=== PATIENT | female | born 1975 | race Hispanic/Latino ===

== ENCOUNTER 2016-10-24 11:26 | Emergency (ER) | payer MEDICAID ==
[2016-10-24] MEDS ORDERED: TYLENOL #3 PO ONE (15:56)
[2016-10-24] MEDS ORDERED: PROVENTIL IH ONE (15:56)
[2016-10-24] MEDS ORDERED: DUONEB 0.5 MG-3 MG/3 ML SOLN IH ONE (18:14)
[2016-10-24] MEDS ORDERED: MOTRIN PO ONE (18:14)
--- NOTE | 2016-10-24 18:52 | XRay Report ---
FINAL REPORT PROCEDURE: Chest. TECHNIQUE: PA and lateral views. HISTORY: Cough with fever. COMPARISON: No prior studies are available for comparison. FINDINGS: The heart and mediastinum appear normal. The lungs are clear and well expanded. There are no pleural effusions. The soft tissues and regional skeleton are unremarkable. IMPRESSION: Normal study.
--- NOTE | 2016-10-24 19:10 | Emergency Department Report ---
Entered by WILFREDO PAGAN, acting as scribe for NIGEL BROWN PA. - General Chief Complaint: Upper Respiratory Infection Stated Complaint: COUGH/FEVER/DIARRHEA/SORE THROAT Time Seen by Provider: 10/24/16 15:51 Source: patient Mode of arrival: Ambulatory Limitations: No Limitations - History of Present Illness Initial Comments: 41 y/o female with PMHx of bipolar disorder and childhood asthma, and PSHx of tonsillectomy, presents to the ED c/o cough beginning 1 week ago. Associated symptoms of mild wheezing, nasal congestion, fever last night (101.2 degrees), sinus area headache, ribcage pain with cough, nausea, vomiting, ear pain, and sore throat, but she denies chest pain, SOB, abdominal pain, diarrhea, numbness , and weakness. The patient took OTC cold medication and ibuprofen with no alleviation of the symptoms. Patient requests an inhaler for home. Noted Dr. Lomas is her PCP and her psychiatrist is Dr. Erickson. MD Complaint: fever, cough, sore throat, nasal congestion, other (mild wheezing , headache) -: week(s) (1 week ago) Severity: moderate Consistency: constant Improves With: nothing Worsens With: nothing Associated Symptoms: fever, headache, rhinorrhea, nasal congestion, cough, nausea, vomiting, other (rib cage pain with cough). denies: chest pain, shortness of breath, diarrhea Treatments Prior to Arrival: Ibuprofen, "cold medicine" - Related Data Previous Rx's Medication Instructions Recorded Last Taken Type ALBUTEROL Inhaler [ProAir HFA 2 puff IH QID PRN #1 inhalation 10/24/16 Unknown Rx Inhaler] Albuterol Sulfate [Albuterol 0.63% 0.63 mg IH TID PRN #1 box 10/24/16 Unknown Rx NEBS] Azithromycin [Zithromax] 250 mg PO QDAY #6 tablet 10/24/16 Unknown Rx Loratadine [Claritin] 10 mg PO DAILY #30 tablet 10/24/16 Unknown Rx Promethazine /Codeine 5 ml PO Q6H PRN #150 ml 10/24/16 Unknown Rx [Phenergan/Codeine 6.25-10 mg/5 ml] Allergies Allergy/AdvReac Type Severity Reaction Status Date / Time ciprofloxacin [From Cipro] Allergy Hives Verified 10/24/16 11:44 ciprofloxacin HCl Allergy Hives Verified 10/24/16 11:44 [From Cipro] ED Review of Systems Comment: All other systems reviewed and negative Constitutional: fever ENT: ear pain, throat pain, congestion (nasal) Respiratory: cough, wheezing. denies: shortness of breath Cardiovascular: denies: chest pain Gastrointestinal: nausea, vomiting. denies: abdominal pain, diarrhea Neurological: headache (sinus area). denies: weakness, numbness ED Past Medical Hx - Past Medical History Previous Medical History?: No - Surgical History Past Surgical History?: Yes Hx Cholecystectomy: Yes Additional Surgical History: Tonsil - Social History Smoking Status: Never Smoker Substance Use Type: None - Medications Home Medications: Home Medications Medication Instructions Recorded Confirmed Last Taken Type ALBUTEROL Inhaler [ProAir HFA 2 puff IH QID PRN #1 inhalation 10/24/16 Unknown Rx Inhaler] Albuterol Sulfate [Albuterol 0.63% 0.63 mg IH TID PRN #1 box 10/24/16 Unknown Rx NEBS] Azithromycin [Zithromax] 250 mg PO QDAY #6 tablet 10/24/16 Unknown Rx Loratadine [Claritin] 10 mg PO DAILY #30 tablet 10/24/16 Unknown Rx Promethazine /Codeine 5 ml PO Q6H PRN #150 ml 10/24/16 Unknown Rx [Phenergan/Codeine 6.25-10 mg/5 ml] ED Physical Exam - General Limitations: No Limitations - Other Other exam information: GENERAL: Patient is alert and oriented x 3. No apparent distress, normal gait, atraumatic. HEAD: Head is normocephalic and atraumatic. Bilateral maxillary sinus tenderness. EYES: Extraocular movements are intact. Pupils are equal, round, and reactive to light and accommodation. EARS: Symmetrical, atraumatic, non tender, ear canal clear with moderate cerumen , TM of the right ear is bulging, do not appreciate the bony landmarks. Left ear TM is normal. Gross auditory nml bilaterally. NOSE: Nose symmetrical, nontender. Nares appeared normal. MOUTH:Mouth is well hydrated and without lesions. Mucous membranes are moist. Uvula midline. Tongue not elevated. Posterior pharynx clear, no exudate or lesions. Noted is some post nasal drip. Tonsils are not erythematous or swollen. Patent airway. NECK: Supple. Non edematous, no carotid bruits. No lymphadenopathy or thyromegaly. LUNGS: Symmetrical with respiration. Expiratory wheezing noted, patient is not in respiratory distress. Patient actively coughing during exam. HEART: Regular rate and rhythm with normal S1/S2 present. No murmurs, rubs, or gallops. ABDOMEN: Soft, nondistended. Nontender to palpation on all quadrants. No organomegaly was noted. Positive bowel sounds. No CVA tenderness. EXTREMITIES/MUSCULOSKELETAL: No cyanosis, clubbing, rash, lesions or edema. Full ROM bilaterally. UE/LE Pulses 2+ bilaterally. LE and UE 5+ strength bilaterally SKIN: Warm and dry. No lesions, ulceration or induration present NEUROLOGIC: No focal deficit, patient behaving appropriately. ED Course Vital Signs 10/24/16 10/24/16 11:45 18:36 Temperature 98.5 F Pulse Rate 87 106 H Respiratory 22 22 Rate Blood Pressure 146/62 Blood Pressure 126/76 [Right] O2 Sat by Pulse 98 96 Oximetry ED Medical Decision Making - Radiology Data Radiology results: report reviewed, image reviewed PROCEDURE: Chest. TECHNIQUE: PA and lateral views. HISTORY: Cough with fever. COMPARISON: No prior studies are available for comparison. FINDINGS: The heart and mediastinum appear normal. The lungs are clear and well expanded. There are no pleural effusions. The soft tissues and regional skeleton are unremarkable. IMPRESSION: Normal study. Transcribed By: FORTUNATO Dictated By: CHI VALENZUELA MD Electronically Authenticated By: CHI VALENZUELA MD Signed Date/Time: 10/24/16 2641 - Medical Decision Making Patient evaluated by the provider in fast track. 41 y/o female presents complaining of cough beginning 1 week ago. The patient's X-ray is normal. Patient is sent home with Discussed with the patient to follow up with her PCP (Dr. Lomas) as referred. Told the patient to return to the ED if the symptoms return or worsen. Patient states understanding and will follow instructions. Vital signs stable. Patient is in no acute distress. ED Disposition Clinical Impression: Upper respiratory infection Qualifiers: URI type: unspecified URI Qualified Code(s): J06.9 - Acute upper respiratory infection, unspecified Disposition: DISCHARGED TO HOME OR SELFCARE Is pt being admited?: No Does the pt Need Aspirin: No Condition: Stable Instructions: Upper Respiratory Infection (ED) Additional Instructions: The take medication as prescribed. If symptoms get worse please follow up with her primary care provider or return to the emergency room. Prescriptions: ALBUTEROL Inhaler [ProAir HFA Inhaler] 2 puff IH QID PRN #1 inhalation PRN Reason: Shortness Of Breath Albuterol Sulfate [Albuterol 0.63% NEBS] 0.63 mg IH TID PRN #1 box PRN Reason: Wheezing Azithromycin [Zithromax] 250 mg PO QDAY #6 tablet Loratadine [Claritin] 10 mg PO DAILY #30 tablet Promethazine /Codeine [Phenergan/Codeine 6.25-10 mg/5 ml] 5 ml PO Q6H PRN #150 ml PRN Reason: cough Referrals: PRIMARY CARE,MD [Primary Care Provider] - 3-5 Days Forms: Work/School Release Form(ED) This documentation as recorded by the EJ hernandez GRACE,accurately reflects the service I personally performed and the decisions made by ,NIGEL BROWN PA.
[2016-10-24 19:31] VITALS: BP 116/80
== END 2016-10-24 19:32 | disposition home or self-care (01) ==
LOC: ED 11:26
DX: J06.9 Acute upper respiratory infection, unspecified (principal); Z88.1 Allergy status to other antibiotic agents; F31.9 Bipolar disorder, unspecified; J45.909 Unspecified asthma, uncomplicated
CPT/HCPCS: 71020; 81025; 94640; 96372; 99284; J2920

== ENCOUNTER 2019-11-24 12:13 | Emergency (ER) | payer SELFPAY ==
--- NOTE | 2019-11-24 12:24 | Emergency Department Report ---
- General Stated complaint: LEFT LEG INSECT BITE Time Seen by Provider: 11/24/19 12:20 - History of Present Illness Initial comments: 44 y/o female comes in for left leg pain times 5 days. Thinks that something has bitten her. Denies any fever, chills, pain worst with standing better with sitting. No PMH no meds allergies to Cipro. complaint: abscess/boil Onset/Timin -: days(s) Tetanus Up to Date: no Location: LLE Severity scale (0 -10): 9 (with standing) Quality: burning, stabbing, aching Consistency: intermittent Improves with: rest Worsens with: palpation, movement Associated symptoms: denies other symptoms Treatments Prior to Arrival: none - Related Data Previous Rx's Medication Instructions Recorded Last Taken Type Albuterol INH(or & Nicu Only) 2 puff IH QID PRN #1 inhalation 10/24/16 Unknown Rx [ProAir HFA Inhaler] Albuterol Sulfate [Albuterol 0.63% 0.63 mg IH TID PRN #1 box 10/24/16 Unknown Rx NEBS] Azithromycin [Zithromax] 250 mg PO QDAY #6 tablet 10/24/16 Unknown Rx Loratadine (Nf) [Claritin] 10 mg PO DAILY #30 tablet 10/24/16 Unknown Rx Promethazine /Codeine 5 ml PO Q6H PRN #150 ml 10/24/16 Unknown Rx [Phenergan/Codeine 6.25-10 mg/5 ml] Acetaminophen/Codeine [Tylenol 1 tab PO Q6H PRN #12 tab 04/24/19 Unknown Rx /Codeine # 3 tab] Cyclobenzaprine [Flexeril] 10 mg PO TID PRN #30 tablet 04/24/19 Unknown Rx Menthol/Camphor [[place] 1 applicatio TP QID PRN #1 tube 04/24/19 Unknown Rx Ointment] Mupirocin [Bactroban 2%] 1 applic TP TID #1 tube 04/24/19 Unknown Rx Naproxen [Naprosyn] 500 mg PO BID PRN #30 tablet 04/24/19 Unknown Rx cephALEXin [Keflex] 500 mg PO Q12HR 10 Days #20 cap 11/24/19 Unknown Rx Allergies Allergy/AdvReac Type Severity Reaction Status Date / Time ciprofloxacin [From Cipro] Allergy Hives Verified 10/24/16 11:44 ciprofloxacin HCl Allergy Hives Verified 10/24/16 11:44 [From Cipro] Abscess Boil HPI - HPI Stated Complaint: LEFT LEG INSECT BITE Time Seen by Provider: 11/24/19 12:20 Home Medications: Previous Rx's Medication Instructions Recorded Last Taken Type Albuterol INH(or & Nicu Only) 2 puff IH QID PRN #1 inhalation 10/24/16 Unknown Rx [ProAir HFA Inhaler] Albuterol Sulfate [Albuterol 0.63% 0.63 mg IH TID PRN #1 box 10/24/16 Unknown Rx NEBS] Azithromycin [Zithromax] 250 mg PO QDAY #6 tablet 10/24/16 Unknown Rx Loratadine (Nf) [Claritin] 10 mg PO DAILY #30 tablet 10/24/16 Unknown Rx Promethazine /Codeine 5 ml PO Q6H PRN #150 ml 10/24/16 Unknown Rx [Phenergan/Codeine 6.25-10 mg/5 ml] Acetaminophen/Codeine [Tylenol 1 tab PO Q6H PRN #12 tab 04/24/19 Unknown Rx /Codeine # 3 tab] Cyclobenzaprine [Flexeril] 10 mg PO TID PRN #30 tablet 04/24/19 Unknown Rx Menthol/Camphor [[place] 1 applicatio TP QID PRN #1 tube 04/24/19 Unknown Rx Ointment] Mupirocin [Bactroban 2%] 1 applic TP TID #1 tube 04/24/19 Unknown Rx Naproxen [Naprosyn] 500 mg PO BID PRN #30 tablet 04/24/19 Unknown Rx cephALEXin [Keflex] 500 mg PO Q12HR 10 Days #20 cap 11/24/19 Unknown Rx Allergies/Adverse Reactions: Allergies Allergy/AdvReac Type Severity Reaction Status Date / Time ciprofloxacin [From Cipro] Allergy Hives Verified 10/24/16 11:44 ciprofloxacin HCl Allergy Hives Verified 10/24/16 11:44 [From Cipro] ED Review of Systems ROS: Stated complaint: LEFT LEG INSECT BITE Other details as noted in HPI Comment: All other systems reviewed and negative ED Past Medical Hx - Past Medical History Hx Asthma: Yes - Surgical History Hx Cholecystectomy: Yes Additional Surgical History: Tonsil - Social History Smoking Status: Never Smoker Substance Use Type: None - Medications Home Medications: Home Medications Medication Instructions Recorded Confirmed Last Taken Type Albuterol INH(or & Nicu Only) 2 puff IH QID PRN #1 inhalation 10/24/16 Unknown Rx [ProAir HFA Inhaler] Albuterol Sulfate [Albuterol 0.63% 0.63 mg IH TID PRN #1 box 10/24/16 Unknown Rx NEBS] Azithromycin [Zithromax] 250 mg PO QDAY #6 tablet 10/24/16 Unknown Rx Loratadine (Nf) [Claritin] 10 mg PO DAILY #30 tablet 10/24/16 Unknown Rx Promethazine /Codeine 5 ml PO Q6H PRN #150 ml 10/24/16 Unknown Rx [Phenergan/Codeine 6.25-10 mg/5 ml] Acetaminophen/Codeine [Tylenol 1 tab PO Q6H PRN #12 tab 04/24/19 Unknown Rx /Codeine # 3 tab] Cyclobenzaprine [Flexeril] 10 mg PO TID PRN #30 tablet 04/24/19 Unknown Rx Menthol/Camphor [[place] 1 applicatio TP QID PRN #1 tube 04/24/19 Unknown Rx Ointment] Mupirocin [Bactroban 2%] 1 applic TP TID #1 tube 04/24/19 Unknown Rx Naproxen [Naprosyn] 500 mg PO BID PRN #30 tablet 04/24/19 Unknown Rx cephALEXin [Keflex] 500 mg PO Q12HR 10 Days #20 cap 11/24/19 Unknown Rx ED Physical Exam - General General appearance: alert, in no apparent distress - Head Head exam: Present: atraumatic, normocephalic - Eye Eye exam: Present: normal appearance - ENT ENT exam: Present: mucous membranes moist - Neck Neck exam: Present: normal inspection - Back Exam Back exam: Present: normal inspection - Neurological Exam Neurological exam: Present: alert, oriented X3 - Psychiatric Psychiatric exam: Present: normal affect, normal mood - Expanded Skin Exam Expanded Type of lesion: Present: bite/sting Distribution of rash: RLE Description of rash: Present: tenderness, erythematous, swelling, blisters ED Medical Decision Making - Medical Decision Making 44 y/o female comes in for left leg pain times 5 days. Thinks that something has bitten her. Denies any fever, chills, pain worst with standing better with sitting. No PMH no meds allergies to Cipro. Cellulites will place on keflex 500 mg twice a day. Over the counter pain meds. Critical care attestation.: If time is entered above; I have spent that time in minutes in the direct care of this critically ill patient, excluding procedure time. ED Disposition Clinical Impression: Cellulitis of leg, left Disposition: DC-01 TO HOME OR SELFCARE Is pt being admited?: No Does the pt Need Aspirin: No Condition: Stable Instructions: Cellulitis (ED) Additional Instructions: Complete medication as prescribed Take over the counter pain medication. Prescriptions: cephALEXin [Keflex] 500 mg PO Q12HR 10 Days #20 cap Referrals: PRIMARY CAREMD [Primary Care Provider] - 3-5 Days MIKE ARRIAGA MD [Staff Physician] - 3-5 Days Forms: Work/School Release Form(ED)
[2019-11-24 12:40] VITALS: BP 146/76
== END 2019-11-24 17:14 | disposition home or self-care (01) ==
LOC: ED 12:13
DX: L03.116 Cellulitis of left lower limb (principal); J45.909 Unspecified asthma, uncomplicated; Z90.49 Acquired absence of other specified parts of digestive tract; Z79.899 Other long term (current) drug therapy; Z88.8 Allergy status to other drugs, medicaments and biological substances
CPT/HCPCS: 99281

== ENCOUNTER 2019-12-01 07:17 | Emergency (ER) | payer SELFPAY ==
[2019-12-01 07:31] VITALS: BP 156/88
--- NOTE | 2019-12-01 09:07 | Emergency Department Report ---
- General Chief complaint: Extremity Problem,Nontraumatic Stated complaint: BITE ON LEFT LEG Time Seen by Provider: 12/01/19 08:19 Source: patient Mode of arrival: Ambulatory Limitations: No Limitations - History of Present Illness Initial comments: This is a 44-year-old female nontoxic, well nourished in appearance, no acute signs of distress presents to the ED with c/o of redness and pain to left anterior larios area. PAtient was treated with Keflex last week and statd symptom s has improved. Pictures from last week has been seen and symptoms are providing. Patient agree to some drainage. Patient denies any fever, chills, nausea, vomiting, chest pain, shortness of breath, headache or stiff neck. Patient stated allergies to cipro and denies any significant PMH. MD complaint: insect bite/sting -: week(s) (1) Location: LLE Severity: mild Severity scale (0 -10): 8 Quality: aching Consistency: constant Improves with: none Worsens with: none Associated symptoms: denies other symptoms - Related Data Previous Rx's Medication Instructions Recorded Last Taken Type Albuterol INH(or & Nicu Only) 2 puff IH QID PRN #1 inhalation 10/24/16 Unknown Rx [ProAir HFA Inhaler] Albuterol Sulfate [Albuterol 0.63% 0.63 mg IH TID PRN #1 box 10/24/16 Unknown Rx NEBS] Azithromycin [Zithromax] 250 mg PO QDAY #6 tablet 10/24/16 Unknown Rx Loratadine (Nf) [Claritin] 10 mg PO DAILY #30 tablet 10/24/16 Unknown Rx Promethazine /Codeine 5 ml PO Q6H PRN #150 ml 10/24/16 Unknown Rx [Phenergan/Codeine 6.25-10 mg/5 ml] Acetaminophen/Codeine [Tylenol 1 tab PO Q6H PRN #12 tab 04/24/19 Unknown Rx /Codeine # 3 tab] Cyclobenzaprine [Flexeril] 10 mg PO TID PRN #30 tablet 04/24/19 Unknown Rx Menthol/Camphor [[place] 1 applicatio TP QID PRN #1 tube 04/24/19 Unknown Rx Ointment] Mupirocin [Bactroban 2%] 1 applic TP TID #1 tube 04/24/19 Unknown Rx Naproxen [Naprosyn] 500 mg PO BID PRN #30 tablet 04/24/19 Unknown Rx cephALEXin [Keflex] 500 mg PO Q12HR 10 Days #20 cap 11/24/19 Unknown Rx Clindamycin [Clindamycin CAP] 300 mg PO Q8H #21 cap 12/01/19 Unknown Rx Allergies Allergy/AdvReac Type Severity Reaction Status Date / Time ciprofloxacin [From Cipro] Allergy Hives Verified 10/24/16 11:44 ciprofloxacin HCl Allergy Hives Verified 10/24/16 11:44 [From Cipro] Abscess Boil HPI - HPI Chief Complaint: Extremity Problem,Nontraumatic Stated Complaint: BITE ON LEFT LEG Time Seen by Provider: 12/01/19 08:19 Home Medications: Previous Rx's Medication Instructions Recorded Last Taken Type Albuterol INH(or & Nicu Only) 2 puff IH QID PRN #1 inhalation 10/24/16 Unknown Rx [ProAir HFA Inhaler] Albuterol Sulfate [Albuterol 0.63% 0.63 mg IH TID PRN #1 box 10/24/16 Unknown Rx NEBS] Azithromycin [Zithromax] 250 mg PO QDAY #6 tablet 10/24/16 Unknown Rx Loratadine (Nf) [Claritin] 10 mg PO DAILY #30 tablet 10/24/16 Unknown Rx Promethazine /Codeine 5 ml PO Q6H PRN #150 ml 10/24/16 Unknown Rx [Phenergan/Codeine 6.25-10 mg/5 ml] Acetaminophen/Codeine [Tylenol 1 tab PO Q6H PRN #12 tab 04/24/19 Unknown Rx /Codeine # 3 tab] Cyclobenzaprine [Flexeril] 10 mg PO TID PRN #30 tablet 04/24/19 Unknown Rx Menthol/Camphor [[place] 1 applicatio TP QID PRN #1 tube 04/24/19 Unknown Rx Ointment] Mupirocin [Bactroban 2%] 1 applic TP TID #1 tube 04/24/19 Unknown Rx Naproxen [Naprosyn] 500 mg PO BID PRN #30 tablet 04/24/19 Unknown Rx cephALEXin [Keflex] 500 mg PO Q12HR 10 Days #20 cap 11/24/19 Unknown Rx Clindamycin [Clindamycin CAP] 300 mg PO Q8H #21 cap 12/01/19 Unknown Rx Allergies/Adverse Reactions: Allergies Allergy/AdvReac Type Severity Reaction Status Date / Time ciprofloxacin [From Cipro] Allergy Hives Verified 10/24/16 11:44 ciprofloxacin HCl Allergy Hives Verified 10/24/16 11:44 [From Cipro] ED Review of Systems ROS: Stated complaint: BITE ON LEFT LEG Other details as noted in HPI Constitutional: denies: chills, fever Eyes: denies: eye pain, eye discharge, vision change ENT: denies: ear pain, throat pain Respiratory: denies: cough, shortness of breath, wheezing Cardiovascular: denies: chest pain, palpitations Endocrine: no symptoms reported Gastrointestinal: denies: abdominal pain, nausea, diarrhea Genitourinary: denies: urgency, dysuria, discharge Musculoskeletal: denies: back pain, joint swelling, arthralgia Skin: denies: rash, lesions Neurological: denies: headache, weakness, paresthesias Psychiatric: denies: anxiety, depression Hematological/Lymphatic: denies: easy bleeding, easy bruising ED Past Medical Hx - Past Medical History Previous Medical History?: Yes Hx Asthma: Yes - Surgical History Past Surgical History?: Yes Hx Cholecystectomy: Yes Additional Surgical History: Tonsil - Social History Smoking Status: Never Smoker Substance Use Type: None - Medications Home Medications: Home Medications Medication Instructions Recorded Confirmed Last Taken Type Albuterol INH(or & Nicu Only) 2 puff IH QID PRN #1 inhalation 10/24/16 Unknown Rx [ProAir HFA Inhaler] Albuterol Sulfate [Albuterol 0.63% 0.63 mg IH TID PRN #1 box 10/24/16 Unknown Rx NEBS] Azithromycin [Zithromax] 250 mg PO QDAY #6 tablet 10/24/16 Unknown Rx Loratadine (Nf) [Claritin] 10 mg PO DAILY #30 tablet 10/24/16 Unknown Rx Promethazine /Codeine 5 ml PO Q6H PRN #150 ml 10/24/16 Unknown Rx [Phenergan/Codeine 6.25-10 mg/5 ml] Acetaminophen/Codeine [Tylenol 1 tab PO Q6H PRN #12 tab 04/24/19 Unknown Rx /Codeine # 3 tab] Cyclobenzaprine [Flexeril] 10 mg PO TID PRN #30 tablet 04/24/19 Unknown Rx Menthol/Camphor [[place] 1 applicatio TP QID PRN #1 tube 04/24/19 Unknown Rx Ointment] Mupirocin [Bactroban 2%] 1 applic TP TID #1 tube 04/24/19 Unknown Rx Naproxen [Naprosyn] 500 mg PO BID PRN #30 tablet 04/24/19 Unknown Rx cephALEXin [Keflex] 500 mg PO Q12HR 10 Days #20 cap 11/24/19 Unknown Rx Clindamycin [Clindamycin CAP] 300 mg PO Q8H #21 cap 12/01/19 Unknown Rx ED Physical Exam - General Limitations: No Limitations General appearance: alert, in no apparent distress - Head Head exam: Present: atraumatic, normocephalic - Extremities Exam Extremities exam: Present: normal inspection, full ROM, tenderness, normal capillary refill. Absent: joint swelling - Expanded Lower Extremity Exam Left Hip exam: Present: normal inspection, full ROM. Absent: tenderness, swelling Upper Leg exam: Present: normal inspection, full ROM. Absent: tenderness, swelling Knee exam: Present: normal inspection, full ROM. Absent: tenderness, swelling Lower Leg exam: Present: normal inspection, full ROM, tenderness, erythema. Absent: swelling, abrasion, laceration, ecchymosis, deformity, crepidus, dislocation, palpable cord, Rl's sign Ankle exam: Present: normal inspection, full ROM. Absent: tenderness, swelling Foot/Toe exam: Present: normal inspection, full ROM. Absent: tenderness, swelling Neuro vascular tendon exam: Present: no vascular compromise Gait: Positive: observed and normal 1 - cellulitis present here - Back Exam Back exam: Present: normal inspection, full ROM - Neurological Exam Neurological exam: Present: alert, oriented X3, normal gait - Psychiatric Psychiatric exam: Present: normal affect, normal mood - Skin Skin exam: Present: warm, dry, intact, normal color. Absent: rash ED Course Vital Signs 12/01/19 07:29 Temperature 97.7 F Pulse Rate 87 Respiratory 18 Rate Blood Pressure 156/88 O2 Sat by Pulse 97 Oximetry - Reevaluation(s) Reevaluation #1: 12/01/19 09:05 Patient is speaking in full sentences with no signs of distress noted. ED Medical Decision Making - Medical Decision Making This is a 44-year-old female that presents with cellulitis. Patient is stable and was examined by me. There is no induration, fluctuance. No signs of abscess formation. The area has been outlined with a permanent marker and patient was instructed to observe symptoms of increased redness or swelling and to return to the ER if this does occur. I will discharge patient with Clinda. Wound culture obtained and sent and is pending. Patient was referred to Follow- up with a primary care doctor in 3-5 days or if symptoms worsen and continue return to emergency room as soon as possible. At time of discharge, the patient does not seem toxic or ill in appearance. No acute signs of distress noted. Patient agrees to discharge treatment plan of care. No further questions noted by the patient. Critical care attestation.: If time is entered above; I have spent that time in minutes in the direct care of this critically ill patient, excluding procedure time. ED Disposition Clinical Impression: Cellulitis of leg, left Disposition: DC-01 TO HOME OR SELFCARE Is pt being admited?: No Does the pt Need Aspirin: No Condition: Stable Instructions: Cellulitis (ED) Additional Instructions: Follow-up with a primary care doctor in 3-5 days or if symptoms worsen and continue return to emergency room as soon as possible. Prescriptions: Clindamycin [Clindamycin CAP] 300 mg PO Q8H #21 cap Referrals: YOUNG GE MD [Primary Care Provider] - 3-5 Days MIKE ARRIAGA MD [Staff Physician] - 3-5 Days [facility] [Provider Group] - 3-5 Days Forms: Work/School Release Form(ED)
== END 2019-12-01 09:12 | disposition home or self-care (01) ==
LOC: ED 07:17
DX: L03.116 Cellulitis of left lower limb (principal); J45.909 Unspecified asthma, uncomplicated; Z79.899 Other long term (current) drug therapy; Z88.8 Allergy status to other drugs, medicaments and biological substances; Z90.49 Acquired absence of other specified parts of digestive tract
CPT/HCPCS: 87076; 87116; 87186; 99282